=== PATIENT | male | born 1980 | race Native Hawaiian/Other Pacific Islander ===

== ENCOUNTER 2020-10-28 05:45 | Emergency (ER) | payer OTHER ==
[~2020-10-28] VITALS: Ht 172.7 cm; Wt 108.9 kg
[2020-10-28 05:53] VITALS: BP 160/79; TEMP 98.1
== END 2020-10-28 06:57 | disposition home or self-care (01) ==
LOC: ED 05:45
DX: J02.9 Acute pharyngitis, unspecified (principal); F17.290 Nicotine dependence, other tobacco product, uncomplicated
CPT/HCPCS: 87502; 87651; 96372; 99283; J0696; J2930